=== PATIENT | female | born 1995 | race Caucasian/White ===

== ENCOUNTER 2020-02-08 11:20 | Inpatient (IN) | payer OTHER ==
[2020-02-08 15:04] LABS: Hematocrit 32.5 % (30.3-42.9); Hemoglobin 11.1 gm/dl (10.1-14.3); Mean Corpuscular HGB Conc 34 % (30-34); Mean Corpuscular Volume 84 fl (79-97); Platelet Count 248 K/mm3 (140-440); Red Blood Count 3.86 M/mm3 (3.65-5.03); Red Cell Distribution Width 13.7 % (13.2-15.2)
[2020-02-08 15:07] LABS: Bilirubin,Urine NEG (Negative); Blood,Urine NEG (Negative); Color,Urine Straw (Yellow); Mucus,Urine FEW /HPF; Protein,Urine <15 mg/dL mg/dL (Negative); RBC,Urine < 1.0 /HPF (0.0-6.0); Urobilinogen,Urine < 2.0 mg/dL (<2.0)
[2020-02-08] MEDS ORDERED: ACETAMINOPHEN 325 MG TAB PO ONE (15:24)
[2020-02-08] MEDS ORDERED: DINOPROSTONE 10 MG VAG SUPP VG PRN (15:25)
[2020-02-08 15:26] LABS: Uric Acid 3.8 mg/dL (3.5-7.6)
[2020-02-08 15:37] LABS: Alanine Aminotransferase 15 units/L (7-56)
[2020-02-08] MEDS ORDERED: TERBUTALINE 1 MG/1 ML INJ SUB-Q PRN (15:54)
[2020-02-08] MEDS ORDERED: fentaNYL 100 MCG/2 ML INJ IV PRN (15:54)
[2020-02-08] MEDS ORDERED: ePHEDrine SULFATE 50 MG/1 ML INJ IV PRN (15:54)
[2020-02-08] MEDS ORDERED: TERBUTALINE 1 MG/1 ML INJ IVP PRN (15:54)
[2020-02-08] MEDS ORDERED: LIDOCAINE (2%) 20 MG/1 ML VIAL 20 ML MDV INFILTRATI ONE (15:54)
[2020-02-08] MEDS ORDERED: MINERAL OIL 30 ML ORAL LIQD PO PRN (15:54)
[2020-02-08 18:48] LABS: Hematocrit 31.9 % (30.3-42.9); Hemoglobin 10.8 gm/dl (10.1-14.3)
[2020-02-09] MEDS: LACTATED RINGERS 1,000 ML IV SCH ×3 (00:47→17:07)
[2020-02-09] MEDS: BUTORPHANOL 2 MG/1 ML INJ IV PRN ×4 (02:17→21:14)
[2020-02-09] MEDS ORDERED: miSOPROStol 25 MCG TAB VG ONE (07:30)
--- NOTE | 2020-02-09 09:08 | History and Physical Report ---
History of Present Illness Date of examination: 02/09/20 Date of admission: 02/08/20 12:26 Chief complaint: Here for induction History of present illness: Pt is a 24 yo at 37w5d who presents for induction of labor secondary to gestational diabetes and gestational hypertension. She reports positive movement and denies LOF or vaginal bleeding. She has received care with [facility] and [facility]. Her course has been complicated by lifestyle-controlled GDM, gHTN, recurrent dysuria with Augmentin suppressive therapy, GERD, flu, ear infection, and bronchitis. She is GBS negative. Past History Past Medical History: no pertinent history Past Surgical History: no surgical history Family/Genetic History: diabetes (mother) Social history: other (Speaks Faroese primarily) - Obstetrical History Expected Date of Delivery: 02/25/20 Actual Gestation: 37 Week(s) 5 Day(s) : 1 Para: 0 Medications and Allergies Allergies Allergy/AdvReac Type Severity Reaction Status Date / Time No Known Allergies Allergy Unverified 02/08/20 12:52 Home Medications Medication Instructions Recorded Confirmed Last Taken Type Vitamin 1 tab PO DAILY 02/08/20 02/08/20 02/07/20 11:00 History 1 Active Meds: Active Medications Butorphanol Tartrate (Stadol) 1 mg IV Q2H PRN PRN Reason: Pain, Moderate(4-6) LABOR PAIN Last Admin: 02/09/20 02:17 Dose: 1 mg Documented by: Dinoprostone (Cervidil) 10 mg VG Q6H PRN PRN Reason: Cervical Ripening Last Admin: 02/08/20 17:00 Dose: 10 mg Documented by: Ephedrine Sulfate (Ephedrine Sulfate) 10 mg IV Q2M PRN PRN Reason: Hypotension Fentanyl (Sublimaze) 100 mcg IV Q2H PRN PRN Reason: Pain,Severe (7-10) LABOR PAIN Oxytocin/Sodium Chloride (Pitocin/Ns 20 Unit/1000ml Drip) 20 units in 1,000 mls @ 125 mls/hr IV DIRECT SEBASTIAN Lactated Ringer's (Lactated Ringers) 1,000 mls @ 125 mls/hr IV DIRECT SEBASTIAN Last Admin: 02/09/20 08:42 Dose: 125 mls/hr Documented by: Mineral Oil (Mineral Oil) 30 ml PO QHS PRN PRN Reason: Constipation Terbutaline Sulfate (Brethine) 0.25 mg SUB-Q ONCE PRN PRN Reason: Hyperstimulation/Hypertonicity Terbutaline Sulfate (Brethine) 0.25 mg IVP ONCE PRN PRN Reason: Hyperstimulation/Hypertonicity Review of Systems All systems: negative Eyes: no blurred vision Gastrointestinal: no abdominal pain Genitourinary: contractions, no vaginal bleeding, no vaginal discharge, no leakage of fluid Neurological: headaches (frontal, since Cervidil placement) - Vital Signs Vital signs: Vital Signs Pulse BP 81 153/93 02/08/20 12:24 02/08/20 12:24 Temp Pulse Resp BP Pulse Ox 98.4 F 95 H 20 136/86 99 02/09/20 07:43 02/09/20 09:02 02/09/20 07:43 02/09/20 08:33 02/09/20 09:02 - Physical Exam Lungs: Positive: Normal air movement Abdomen: Positive: soft. Negative: distention Uterus: Positive: enlarged (gravid) Extremities: Positive: normal - Obstetrical FHR: category 1 Uterine Contraction Monitor Mode: External Cervical Dilatation: 1 (per RN) Cervical Effacement Percentage: 70 station: -2 Uterine Contraction Frequency (min): 4 Uterine Contraction Pattern: Regular Uterine Tone Measurement Phase: Contraction Uterine Contraction Intensity: Mild Results Result Diagrams: 02/08/20 18:14 02/08/20 13:00 Abnormal lab results 02/08/20 02/08/20 02/09/20 Range/Units 13:00 13:00 07:00 WBC 12.8 H (4.5-11.0) K/mm3 Creatinine 0.4 L (0.7-1.2) mg/dL POC Glucose 176 H (70-105) Lactate Dehydrogenase 453 H (91-180) units/L 02/09/20 Range/Units 08:10 WBC (4.5-11.0) K/mm3 Creatinine (0.7-1.2) mg/dL POC Glucose 137 H (70-105) Lactate Dehydrogenase (91-180) units/L All other labs normal. Assessment and Plan A: 24 yo at 37w5d EGA Gestational hypertension Gestational diabetes, lifestyle-controlled GBS negative Membranes intact Cervix unfavorable for labor Recurrent dysuria GERD Flu/otitis/bronchitis this P: Admit for IOL. S/p Cervidil, initiate Cytotec BG per protocol Continue to monitor closely Mag sulfate if headache unrelieved by Tylenol Anticipate
[2020-02-09] MEDS ORDERED: ACETAMINOPHEN 325 MG TAB PO ONE ×2 (09:33→09:36)
[2020-02-09] MEDS: miSOPROStol 25 MCG TAB VG SCH ×2 (14:04→18:15)
--- NOTE | 2020-02-09 20:05 | Progress Note ---
Assessment and Plan A: 24 yo at 37w5d EGA Gestational hypertension Gestational diabetes, lifestyle-controlled GBS negative Membranes intact Cervix unfavorable for labor Recurrent dysuria GERD Flu/otitis/bronchitis this P: Discussed r/b/a of Cook Catheter placement including infection and rupture of membranes. Pt elects for placement. Cook Catheter placed in sterile fashion, each balloon inflated to 60ml, pt tolerated with discomfort. Continue Cytotec administration BG per protocol Continue to monitor closely Anticipate Subjective - Subjective Date of service: 02/09/20 Interval history: Pt has received Cervidil and Cytotec for IOL with minimal cervical change. Pt is a 24 yo at 37w5d who presents for induction of labor secondary to gestational diabetes and gestational hypertension. She reports positive movement and denies LOF or vaginal bleeding. She has received care with [facility] and [facility]. Her course has been complicated by lifestyle-controlled GDM, gHTN, recurrent dysuria with Augmentin suppressive therapy, GERD, flu, ear infection, and bronchitis. She is GBS negative. Patient reports: contractions, no new complaints, no loss of fluid, no vaginal bleeding Objective - Vital Signs Vital Signs: Vital Signs - 12hr 02/09/20 02/09/20 02/09/20 08:07 08:12 08:17 Temperature Pulse Rate 103 H 99 H 116 H Respiratory Rate Blood Pressure Blood Pressure [Left] O2 Sat by Pulse 99 99 99 Oximetry 02/09/20 02/09/20 02/09/20 08:22 08:27 08:32 Temperature Pulse Rate 108 H 108 H 105 H Respiratory Rate Blood Pressure Blood Pressure [Left] O2 Sat by Pulse 99 99 99 Oximetry 02/09/20 02/09/20 02/09/20 08:33 08:37 08:42 Temperature Pulse Rate 111 H 103 H 102 H Respiratory Rate Blood Pressure 136/86 Blood Pressure [Left] O2 Sat by Pulse 99 99 Oximetry 02/09/20 02/09/20 02/09/20 08:47 08:52 08:57 Temperature Pulse Rate 102 H 112 H 102 H Respiratory Rate Blood Pressure Blood Pressure [Left] O2 Sat by Pulse 99 99 99 Oximetry 02/09/20 02/09/20 02/09/20 09:02 09:04 09:07 Temperature Pulse Rate 95 H 98 H 101 H Respiratory Rate Blood Pressure 118/76 Blood Pressure [Left] O2 Sat by Pulse 99 99 Oximetry 02/09/20 02/09/20 02/09/20 09:12 09:17 09:22 Temperature Pulse Rate 98 H 102 H 105 H Respiratory Rate Blood Pressure Blood Pressure [Left] O2 Sat by Pulse 99 99 99 Oximetry 02/09/20 02/09/20 02/09/20 09:27 09:32 09:35 Temperature Pulse Rate 102 H 95 H 96 H Respiratory Rate Blood Pressure 125/80 Blood Pressure [Left] O2 Sat by Pulse 99 98 Oximetry 02/09/20 02/09/20 02/09/20 09:37 09:42 09:47 Temperature Pulse Rate 105 H 99 H 89 Respiratory Rate Blood Pressure Blood Pressure [Left] O2 Sat by Pulse 100 99 99 Oximetry 02/09/20 02/09/20 02/09/20 09:52 09:57 10:02 Temperature Pulse Rate 94 H 91 H 85 Respiratory Rate Blood Pressure Blood Pressure [Left] O2 Sat by Pulse 99 99 98 Oximetry 02/09/20 02/09/20 02/09/20 10:05 10:07 10:12 Temperature Pulse Rate 79 76 94 H Respiratory Rate Blood Pressure 118/72 Blood Pressure [Left] O2 Sat by Pulse 98 99 Oximetry 02/09/20 02/09/20 02/09/20 10:17 10:22 10:27 Temperature Pulse Rate 83 89 94 H Respiratory Rate Blood Pressure Blood Pressure [Left] O2 Sat by Pulse 99 99 99 Oximetry 02/09/20 02/09/20 02/09/20 10:32 10:34 10:37 Temperature Pulse Rate 83 84 90 Respiratory Rate Blood Pressure 139/85 Blood Pressure [Left] O2 Sat by Pulse 98 94 98 Oximetry 02/09/20 02/09/20 02/09/20 10:41 10:42 10:47 Temperature Pulse Rate 79 100 H Respiratory 20 Rate Blood Pressure Blood Pressure [Left] O2 Sat by Pulse 99 99 Oximetry 02/09/20 02/09/20 02/09/20 10:52 10:57 11:02 Temperature Pulse Rate 83 93 H 79 Respiratory Rate Blood Pressure Blood Pressure [Left] O2 Sat by Pulse 99 99 100 Oximetry 02/09/20 02/09/20 02/09/20 11:04 11:07 11:12 Temperature Pulse Rate 78 78 80 Respiratory Rate Blood Pressure 118/74 Blood Pressure [Left] O2 Sat by Pulse 100 99 Oximetry 02/09/20 02/09/20 02/09/20 11:17 11:22 11:27 Temperature Pulse Rate 81 83 80 Respiratory Rate Blood Pressure Blood Pressure [Left] O2 Sat by Pulse 99 99 99 Oximetry 02/09/20 02/09/20 02/09/20 11:32 11:35 11:37 Temperature Pulse Rate 78 83 87 Respiratory Rate Blood Pressure 119/90 Blood Pressure [Left] O2 Sat by Pulse 99 99 Oximetry 02/09/20 02/09/20 02/09/20 11:42 11:47 11:52 Temperature Pulse Rate 78 72 76 Respiratory Rate Blood Pressure Blood Pressure [Left] O2 Sat by Pulse 99 99 99 Oximetry 02/09/20 02/09/20 02/09/20 11:57 12:02 12:04 Temperature Pulse Rate 81 82 88 Respiratory Rate Blood Pressure 128/84 Blood Pressure [Left] O2 Sat by Pulse 98 97 Oximetry 02/09/20 02/09/20 02/09/20 12:07 12:12 12:17 Temperature Pulse Rate 81 79 81 Respiratory Rate Blood Pressure Blood Pressure [Left] O2 Sat by Pulse 98 97 97 Oximetry 02/09/20 02/09/20 02/09/20 12:22 12:27 12:32 Temperature Pulse Rate 78 76 81 Respiratory Rate Blood Pressure Blood Pressure [Left] O2 Sat by Pulse 96 97 97 Oximetry 02/09/20 02/09/20 02/09/20 12:33 12:40 12:45 Temperature Pulse Rate 78 92 H 95 H Respiratory Rate Blood Pressure 123/83 Blood Pressure [Left] O2 Sat by Pulse 99 100 Oximetry 02/09/20 02/09/20 02/09/20 12:50 12:51 12:55 Temperature Pulse Rate 73 72 Respiratory 18 Rate Blood Pressure Blood Pressure [Left] O2 Sat by Pulse 99 99 Oximetry 02/09/20 02/09/20 02/09/20 13:00 13:05 13:10 Temperature Pulse Rate 79 77 78 Respiratory Rate Blood Pressure Blood Pressure [Left] O2 Sat by Pulse 98 98 99 Oximetry 02/09/20 02/09/20 02/09/20 13:15 13:20 13:25 Temperature Pulse Rate 73 74 78 Respiratory Rate Blood Pressure Blood Pressure [Left] O2 Sat by Pulse 99 99 100 Oximetry 02/09/20 02/09/20 02/09/20 13:30 13:35 13:40 Temperature Pulse Rate 77 80 72 Respiratory Rate Blood Pressure Blood Pressure [Left] O2 Sat by Pulse 100 100 100 Oximetry 02/09/20 02/09/20 02/09/20 13:41 13:45 13:50 Temperature Pulse Rate 74 85 105 H Respiratory Rate Blood Pressure 131/81 Blood Pressure [Left] O2 Sat by Pulse 100 100 Oximetry 02/09/20 02/09/20 02/09/20 13:55 14:00 14:05 Temperature Pulse Rate 78 77 77 Respiratory Rate Blood Pressure Blood Pressure [Left] O2 Sat by Pulse 100 100 100 Oximetry 02/09/20 02/09/20 02/09/20 14:10 14:15 14:20 Temperature Pulse Rate 87 86 89 Respiratory Rate Blood Pressure Blood Pressure [Left] O2 Sat by Pulse 99 99 99 Oximetry 02/09/20 02/09/20 02/09/20 14:25 14:30 14:35 Temperature Pulse Rate 97 H 84 80 Respiratory Rate Blood Pressure Blood Pressure [Left] O2 Sat by Pulse 99 99 99 Oximetry 02/09/20 02/09/20 02/09/20 14:40 14:43 14:45 Temperature Pulse Rate 92 H 93 H 91 H Respiratory Rate Blood Pressure 120/69 Blood Pressure [Left] O2 Sat by Pulse 99 99 Oximetry 02/09/20 02/09/20 02/09/20 14:50 14:55 15:00 Temperature Pulse Rate 90 87 90 Respiratory Rate Blood Pressure Blood Pressure [Left] O2 Sat by Pulse 99 98 99 Oximetry 02/09/20 02/09/20 02/09/20 15:05 15:10 15:15 Temperature Pulse Rate 96 H 87 93 H Respiratory Rate Blood Pressure Blood Pressure [Left] O2 Sat by Pulse 99 99 99 Oximetry 02/09/20 02/09/20 02/09/20 15:20 15:25 15:30 Temperature Pulse Rate 95 H 95 H 91 H Respiratory Rate Blood Pressure Blood Pressure [Left] O2 Sat by Pulse 99 99 99 Oximetry 02/09/20 02/09/20 02/09/20 15:35 15:40 15:42 Temperature Pulse Rate 81 88 86 Respiratory Rate Blood Pressure 130/77 Blood Pressure [Left] O2 Sat by Pulse 99 99 Oximetry 02/09/20 02/09/20 02/09/20 15:45 15:50 15:55 Temperature Pulse Rate 87 86 77 Respiratory Rate Blood Pressure Blood Pressure [Left] O2 Sat by Pulse 99 99 99 Oximetry 02/09/20 02/09/20 02/09/20 16:00 16:05 16:10 Temperature Pulse Rate 86 82 101 H Respiratory Rate Blood Pressure Blood Pressure [Left] O2 Sat by Pulse 99 100 99 Oximetry 02/09/20 02/09/20 02/09/20 16:15 16:20 16:25 Temperature Pulse Rate 82 88 90 Respiratory Rate Blood Pressure Blood Pressure [Left] O2 Sat by Pulse 98 99 99 Oximetry 02/09/20 02/09/20 02/09/20 16:30 16:35 16:40 Temperature Pulse Rate 87 83 89 Respiratory Rate Blood Pressure Blood Pressure [Left] O2 Sat by Pulse 99 98 99 Oximetry 02/09/20 02/09/20 02/09/20 16:42 16:45 16:50 Temperature Pulse Rate 76 85 90 Respiratory Rate Blood Pressure 142/83 Blood Pressure [Left] O2 Sat by Pulse 99 98 Oximetry 02/09/20 02/09/20 02/09/20 16:55 17:00 17:05 Temperature Pulse Rate 88 88 93 H Respiratory Rate Blood Pressure Blood Pressure [Left] O2 Sat by Pulse 99 99 98 Oximetry 02/09/20 02/09/20 02/09/20 17:10 17:13 17:15 Temperature 98.1 F Pulse Rate 83 78 98 H Respiratory 18 Rate Blood Pressure Blood Pressure 142/83 [Left] O2 Sat by Pulse 99 99 99 Oximetry 02/09/20 02/09/20 02/09/20 17:20 17:25 17:30 Temperature Pulse Rate 80 94 H 86 Respiratory Rate Blood Pressure Blood Pressure [Left] O2 Sat by Pulse 99 100 99 Oximetry 02/09/20 02/09/20 02/09/20 17:35 17:40 17:41 Temperature Pulse Rate 82 95 H 91 H Respiratory Rate Blood Pressure 142/100 Blood Pressure [Left] O2 Sat by Pulse 99 99 Oximetry 02/09/20 02/09/20 02/09/20 17:45 17:50 17:55 Temperature Pulse Rate 81 86 89 Respiratory Rate Blood Pressure 133/75 Blood Pressure [Left] O2 Sat by Pulse 98 98 99 Oximetry 02/09/20 02/09/20 02/09/20 18:00 18:05 18:10 Temperature Pulse Rate 84 83 81 Respiratory Rate Blood Pressure Blood Pressure [Left] O2 Sat by Pulse 98 99 99 Oximetry 02/09/20 02/09/20 02/09/20 18:15 18:20 18:25 Temperature Pulse Rate 90 85 84 Respiratory Rate Blood Pressure Blood Pressure [Left] O2 Sat by Pulse 99 98 99 Oximetry 02/09/20 02/09/20 02/09/20 18:30 18:35 18:40 Temperature Pulse Rate 82 82 87 Respiratory Rate Blood Pressure Blood Pressure [Left] O2 Sat by Pulse 98 99 99 Oximetry 02/09/20 02/09/20 02/09/20 18:42 18:45 18:50 Temperature Pulse Rate 79 92 H 84 Respiratory Rate Blood Pressure 135/79 Blood Pressure [Left] O2 Sat by Pulse 99 99 Oximetry 02/09/20 02/09/20 02/09/20 18:55 19:00 19:05 Temperature Pulse Rate 83 82 80 Respiratory Rate Blood Pressure Blood Pressure [Left] O2 Sat by Pulse 98 99 99 Oximetry 02/09/20 02/09/20 02/09/20 19:10 19:11 19:15 Temperature Pulse Rate 80 80 Respiratory 20 Rate Blood Pressure Blood Pressure [Left] O2 Sat by Pulse 99 99 Oximetry 02/09/20 02/09/20 02/09/20 19:20 19:25 19:30 Temperature Pulse Rate 80 85 81 Respiratory Rate Blood Pressure Blood Pressure [Left] O2 Sat by Pulse 97 98 98 Oximetry 02/09/20 02/09/20 02/09/20 19:35 19:40 19:41 Temperature 98.4 F Pulse Rate 77 69 73 Respiratory 18 Rate Blood Pressure 134/84 Blood Pressure 134/84 [Left] O2 Sat by Pulse 98 98 98 Oximetry 02/09/20 02/09/20 02/09/20 19:45 19:50 19:55 Temperature Pulse Rate 75 78 86 Respiratory Rate Blood Pressure Blood Pressure [Left] O2 Sat by Pulse 98 100 100 Oximetry 02/09/20 20:00 Temperature Pulse Rate 79 Respiratory Rate Blood Pressure Blood Pressure [Left] O2 Sat by Pulse 99 Oximetry - Exam Lungs: Normal air movement FHR: category 1 Uterine Contraction Monitor Mode: External Cervical Dilatation: 1.5 Cervical Effacement Percentage: 70 station: -2 Uterine Contraction Pattern: Irregular - Labs Labs: Abnormal Labs 02/08/20 02/08/20 02/09/20 13:00 13:00 07:00 WBC 12.8 H Creatinine 0.4 L POC Glucose 176 H Lactate Dehydrogenase 453 H 02/09/20 02/09/20 08:10 16:05 WBC Creatinine POC Glucose 137 H 129 H Lactate Dehydrogenase Laboratory Results - last 24 hr 02/08/20 02/09/20 02/09/20 21:26 07:00 08:10 POC Glucose 81 176 H 137 H 02/09/20 16:05 POC Glucose 129 H
[2020-02-09] MEDS ORDERED: PROMETHAZINE 25 MG TAB PO PRN (21:09)
[2020-02-09] MEDS ORDERED: DEXMEDETOMIDINE 200 MCG/2 ML VIAL IV ONE (22:40)
[2020-02-09] MEDS ORDERED: fentaNYL-BUPIV 2 MCG/ML-0.125% 200 MCG/100 ML BAG EPIDURAL ONE (22:40)
--- NOTE | 2020-02-09 22:57 | Anesthesia Consultation ---
Anesthesia Consult and Med Hx Date of service: 02/09/20 - Airway Anesthetic Teeth Evaluation: Good ROM Head & Neck: Adequate Mental/Hyoid Distance: Adequate Mallampati Class: Class II Intubation Access Assessment: Probably Good - Pulmonary Exam CTA: Yes - Cardiac Exam Cardiac Exam: RRR - Pre-Operative Health Status ASA Pre-Surgery Classification: ASA2 Proposed Anesthetic Plan: Epidural - Cardiovascular System Hx Hypertension: Yes - Other Systems Hx Alcohol Use: No
[2020-02-09] MEDS ORDERED: NALOXONE 2 MG/2 ML INJ IV PRN (22:58)
[2020-02-09] MEDS ORDERED: ePHEDrine SULFATE 50 MG/1 ML INJ IV PRN (22:58)
--- NOTE | 2020-02-09 22:58 | Progress Note ---
Labor Epidural - Labor Epidural Start Time: 22:45 Stop Time: 22:55 Performed by:: CINDY CAMERON Procedure: Patient is requesting epidural for labor pain. H&P, and labs reviewed. Procedure explained, questions answered, consent obtained. Patient in L lateral position with blood pressure cuff and pulse ox on and working. Timeout performed immediately before start of procedure. Sterile betadine prep/drape. 3 mL 1% lidocaine skin wheal at L[3]-L[4]. 18-gauge Touhy epidural needle advanced to [id number] with saline at [7] cm. Epidural dexmedetomidine [30] mcg administered. Epidural catheter advanced to [12] cm, negative aspiration for blood and csf, negative test dose 3 ml 1.5% lidocaine with epinephrine. Sterile steri-strips and tegaderm applied, followed by tape reinforcement. Patient tolerated procedure well.
[2020-02-09] MEDS ORDERED: fentaNYL-BUPIV 2 MCG/ML-0.125% 200 MCG/100 ML BAG EPIDURAL SCH (23:00)
[2020-02-10] MEDS ORDERED: BUPIVACAINE/PF (0.25%) 2.5 MG/ML 10 ML VIAL INFILTRATI ONE ×2 (05:13→09:57)
[2020-02-10] MEDS ORDERED: OXYTOCIN DRIP 30,000 MILLIUNITS/500 ML BAG IV ONE (05:30)
--- NOTE | 2020-02-10 05:32 | Progress Note ---
Assessment and Plan A: 24 yo at 37w6d EGA Gestational hypertension Gestational diabetes, lifestyle-controlled Membranes ruptured GBS negative P: Cook catheter expelled with gentle traction, SROM clear fluid Initiate pitocin titration BG per protocol Continue to monitor closely Anticipate Subjective - Subjective Date of service: 02/10/20 Principal diagnosis: IOL Interval history: HD3 of IOL for GDM and gHTN. Pt has received Cervidil, Cytotec, and Cook Catheter. She is in significant back pain. Pt is a 24 yo at 37w5d who presents for induction of labor secondary to gestational diabetes and gestational hypertension. She reports positive movement and denies LOF or vaginal bleeding. She has received care with [facility] and [facility]. Her course has been complicated by lifestyle-controlled GDM, gHTN, recurrent dysuria with Augmentin suppressive therapy, GERD, flu, ear infection, and bronchitis. She is GBS negative. Patient reports: new complaints (back pain), contractions, no loss of fluid, no vaginal bleeding Objective - Vital Signs Vital Signs: Vital Signs - 12hr 02/09/20 02/09/20 02/09/20 17:35 17:40 17:41 Temperature Pulse Rate 82 95 H 91 H Respiratory Rate Blood Pressure 142/100 Blood Pressure [Left] O2 Sat by Pulse 99 99 Oximetry 02/09/20 02/09/20 02/09/20 17:45 17:50 17:55 Temperature Pulse Rate 81 86 89 Respiratory Rate Blood Pressure 133/75 Blood Pressure [Left] O2 Sat by Pulse 98 98 99 Oximetry 02/09/20 02/09/20 02/09/20 18:00 18:05 18:10 Temperature Pulse Rate 84 83 81 Respiratory Rate Blood Pressure Blood Pressure [Left] O2 Sat by Pulse 98 99 99 Oximetry 02/09/20 02/09/20 02/09/20 18:15 18:20 18:25 Temperature Pulse Rate 90 85 84 Respiratory Rate Blood Pressure Blood Pressure [Left] O2 Sat by Pulse 99 98 99 Oximetry 02/09/20 02/09/20 02/09/20 18:30 18:35 18:40 Temperature Pulse Rate 82 82 87 Respiratory Rate Blood Pressure Blood Pressure [Left] O2 Sat by Pulse 98 99 99 Oximetry 02/09/20 02/09/20 02/09/20 18:42 18:45 18:50 Temperature Pulse Rate 79 92 H 84 Respiratory Rate Blood Pressure 135/79 Blood Pressure [Left] O2 Sat by Pulse 99 99 Oximetry 02/09/20 02/09/20 02/09/20 18:55 19:00 19:05 Temperature Pulse Rate 83 82 80 Respiratory Rate Blood Pressure Blood Pressure [Left] O2 Sat by Pulse 98 99 99 Oximetry 02/09/20 02/09/20 02/09/20 19:10 19:11 19:15 Temperature Pulse Rate 80 80 Respiratory 20 Rate Blood Pressure Blood Pressure [Left] O2 Sat by Pulse 99 99 Oximetry 02/09/20 02/09/20 02/09/20 19:20 19:25 19:30 Temperature Pulse Rate 80 85 81 Respiratory Rate Blood Pressure Blood Pressure [Left] O2 Sat by Pulse 97 98 98 Oximetry 02/09/20 02/09/20 02/09/20 19:35 19:40 19:41 Temperature 98.4 F Pulse Rate 77 69 73 Respiratory 18 Rate Blood Pressure 134/84 Blood Pressure 134/84 [Left] O2 Sat by Pulse 98 98 98 Oximetry 02/09/20 02/09/20 02/09/20 19:45 19:50 19:55 Temperature Pulse Rate 75 78 86 Respiratory Rate Blood Pressure Blood Pressure [Left] O2 Sat by Pulse 98 100 100 Oximetry 02/09/20 02/09/20 02/09/20 20:00 20:05 20:10 Temperature Pulse Rate 79 80 85 Respiratory Rate Blood Pressure Blood Pressure [Left] O2 Sat by Pulse 99 99 97 Oximetry 02/09/20 02/09/20 02/09/20 20:15 20:20 20:25 Temperature Pulse Rate 73 103 H 79 Respiratory Rate Blood Pressure Blood Pressure [Left] O2 Sat by Pulse 98 99 100 Oximetry 02/09/20 02/09/20 02/09/20 20:27 20:30 20:33 Temperature Pulse Rate 74 77 76 Respiratory 18 Rate Blood Pressure 142/88 Blood Pressure 142/88 [Left] O2 Sat by Pulse 99 98 Oximetry 02/09/20 02/09/20 02/09/20 20:35 20:40 20:45 Temperature Pulse Rate 73 75 77 Respiratory Rate Blood Pressure Blood Pressure [Left] O2 Sat by Pulse 97 98 97 Oximetry 02/09/20 02/09/20 02/09/20 20:47 20:50 20:55 Temperature Pulse Rate 75 74 93 H Respiratory Rate Blood Pressure 134/79 Blood Pressure [Left] O2 Sat by Pulse 99 99 Oximetry 02/09/20 02/09/20 02/09/20 21:00 21:05 21:10 Temperature Pulse Rate 74 74 76 Respiratory Rate Blood Pressure 142/87 Blood Pressure [Left] O2 Sat by Pulse 99 100 99 Oximetry 02/09/20 02/09/20 02/09/20 21:15 21:20 21:25 Temperature Pulse Rate 82 75 80 Respiratory Rate Blood Pressure Blood Pressure [Left] O2 Sat by Pulse 99 97 97 Oximetry 02/09/20 02/09/20 02/09/20 21:27 21:30 21:35 Temperature Pulse Rate 76 89 81 Respiratory Rate Blood Pressure 123/68 Blood Pressure [Left] O2 Sat by Pulse 96 97 Oximetry 02/09/20 02/09/20 02/09/20 21:40 21:45 21:46 Temperature Pulse Rate 86 82 89 Respiratory Rate Blood Pressure 135/84 Blood Pressure [Left] O2 Sat by Pulse 98 97 93 Oximetry 02/09/20 02/09/20 02/09/20 21:50 21:55 22:00 Temperature Pulse Rate 92 H 100 H 91 H Respiratory Rate Blood Pressure Blood Pressure [Left] O2 Sat by Pulse 97 97 97 Oximetry 02/09/20 02/09/20 02/09/20 22:04 22:05 22:06 Temperature Pulse Rate 83 103 H 88 Respiratory 18 Rate Blood Pressure 135/95 Blood Pressure 135/84 [Left] O2 Sat by Pulse 98 100 Oximetry 02/09/20 02/09/20 02/09/20 22:10 22:15 22:20 Temperature Pulse Rate 86 103 H 88 Respiratory Rate Blood Pressure Blood Pressure [Left] O2 Sat by Pulse 99 97 100 Oximetry 02/09/20 02/09/20 02/09/20 22:25 22:27 22:30 Temperature Pulse Rate 83 85 85 Respiratory Rate Blood Pressure 151/73 Blood Pressure [Left] O2 Sat by Pulse 98 94 99 Oximetry 02/09/20 02/09/20 02/09/20 22:35 22:40 22:45 Temperature Pulse Rate 85 92 H 91 H Respiratory Rate Blood Pressure Blood Pressure [Left] O2 Sat by Pulse 99 98 99 Oximetry 02/09/20 02/09/20 02/09/20 22:47 22:49 22:50 Temperature Pulse Rate 88 81 86 Respiratory Rate Blood Pressure 168/98 144/90 Blood Pressure [Left] O2 Sat by Pulse 99 Oximetry 02/09/20 02/09/20 02/09/20 22:51 22:53 22:55 Temperature Pulse Rate 82 91 H 92 H Respiratory Rate Blood Pressure 142/82 162/91 149/80 Blood Pressure [Left] O2 Sat by Pulse 98 Oximetry 02/09/20 02/09/20 02/09/20 22:59 23:00 23:01 Temperature Pulse Rate 88 82 81 Respiratory Rate Blood Pressure 136/73 128/77 Blood Pressure [Left] O2 Sat by Pulse 98 Oximetry 02/09/20 02/09/20 02/09/20 23:02 23:05 23:07 Temperature Pulse Rate 92 H 92 H 83 Respiratory Rate Blood Pressure 138/84 144/87 146/82 Blood Pressure [Left] O2 Sat by Pulse 98 Oximetry 02/09/20 02/09/20 02/09/20 23:08 23:10 23:11 Temperature Pulse Rate 99 H 102 H 89 Respiratory Rate Blood Pressure 152/93 158/96 Blood Pressure [Left] O2 Sat by Pulse 99 Oximetry 02/09/20 02/09/20 02/09/20 23:13 23:14 23:15 Temperature Pulse Rate 99 H 82 82 Respiratory 18 Rate Blood Pressure 148/86 144/88 Blood Pressure 144/88 [Left] O2 Sat by Pulse 99 Oximetry 02/09/20 02/09/20 02/09/20 23:16 23:17 23:19 Temperature Pulse Rate 91 H 104 H 86 Respiratory 18 Rate Blood Pressure 178/113 163/87 Blood Pressure [Left] O2 Sat by Pulse 99 Oximetry 02/09/20 02/09/20 02/09/20 23:20 23:21 23:23 Temperature Pulse Rate 77 76 82 Respiratory Rate Blood Pressure 163/87 165/89 Blood Pressure [Left] O2 Sat by Pulse 96 Oximetry 02/09/20 02/09/20 02/09/20 23:25 23:26 23:27 Temperature Pulse Rate 90 81 75 Respiratory Rate Blood Pressure 164/97 138/88 Blood Pressure [Left] O2 Sat by Pulse 96 Oximetry 02/09/20 02/09/20 02/09/20 23:31 23:36 23:41 Temperature Pulse Rate 78 77 83 Respiratory Rate Blood Pressure Blood Pressure [Left] O2 Sat by Pulse 97 97 97 Oximetry 02/09/20 02/09/20 02/09/20 23:44 23:46 23:51 Temperature Pulse Rate 74 78 79 Respiratory Rate Blood Pressure 144/83 Blood Pressure [Left] O2 Sat by Pulse 97 99 Oximetry 02/09/20 02/09/20 02/10/20 23:56 23:58 00:01 Temperature Pulse Rate 71 73 82 Respiratory 18 Rate Blood Pressure 139/91 Blood Pressure 139/91 [Left] O2 Sat by Pulse 97 99 98 Oximetry 02/10/20 02/10/20 02/10/20 00:06 00:11 00:13 Temperature Pulse Rate 76 74 75 Respiratory Rate Blood Pressure 144/97 Blood Pressure [Left] O2 Sat by Pulse 98 98 Oximetry 02/10/20 02/10/20 02/10/20 00:16 00:21 00:26 Temperature Pulse Rate 74 82 84 Respiratory Rate Blood Pressure Blood Pressure [Left] O2 Sat by Pulse 96 98 99 Oximetry 02/10/20 02/10/20 02/10/20 00:30 00:31 00:36 Temperature Pulse Rate 85 78 78 Respiratory 18 Rate Blood Pressure 113/72 Blood Pressure 113/72 [Left] O2 Sat by Pulse 99 99 98 Oximetry 02/10/20 02/10/20 02/10/20 00:41 00:46 00:51 Temperature Pulse Rate 80 76 80 Respiratory Rate Blood Pressure 98/60 Blood Pressure [Left] O2 Sat by Pulse 98 98 98 Oximetry 02/10/20 02/10/20 02/10/20 00:56 00:58 01:01 Temperature Pulse Rate 81 79 80 Respiratory Rate Blood Pressure 105/58 Blood Pressure [Left] O2 Sat by Pulse 98 98 Oximetry 02/10/20 02/10/20 02/10/20 01:06 01:11 01:14 Temperature Pulse Rate 88 85 81 Respiratory Rate Blood Pressure 125/69 Blood Pressure [Left] O2 Sat by Pulse 98 98 Oximetry 02/10/20 02/10/20 02/10/20 01:16 01:21 01:26 Temperature Pulse Rate 80 79 82 Respiratory Rate Blood Pressure Blood Pressure [Left] O2 Sat by Pulse 98 98 98 Oximetry 02/10/20 02/10/20 02/10/20 01:28 01:31 01:36 Temperature Pulse Rate 82 80 86 Respiratory Rate Blood Pressure 105/59 Blood Pressure [Left] O2 Sat by Pulse 97 97 Oximetry 02/10/20 02/10/20 02/10/20 01:41 01:44 01:46 Temperature Pulse Rate 77 76 79 Respiratory Rate Blood Pressure 109/63 Blood Pressure [Left] O2 Sat by Pulse 97 97 Oximetry 02/10/20 02/10/20 02/10/20 01:51 01:56 01:58 Temperature Pulse Rate 83 91 H 79 Respiratory 18 Rate Blood Pressure 104/57 Blood Pressure 105/58 [Left] O2 Sat by Pulse 97 97 98 Oximetry 02/10/20 02/10/20 02/10/20 02:01 02:06 02:11 Temperature Pulse Rate 93 H 101 H 107 H Respiratory Rate Blood Pressure Blood Pressure [Left] O2 Sat by Pulse 98 99 99 Oximetry 02/10/20 02/10/20 02/10/20 02:13 02:16 02:18 Temperature 98.8 F Pulse Rate 86 75 76 Respiratory 18 Rate Blood Pressure 137/87 Blood Pressure 137/87 [Left] O2 Sat by Pulse 98 99 Oximetry 02/10/20 02/10/20 02/10/20 02:21 02:26 02:28 Temperature Pulse Rate 85 79 77 Respiratory Rate Blood Pressure 136/84 Blood Pressure [Left] O2 Sat by Pulse 99 97 Oximetry 02/10/20 02/10/20 02/10/20 02:31 02:36 02:41 Temperature Pulse Rate 81 80 80 Respiratory Rate Blood Pressure Blood Pressure [Left] O2 Sat by Pulse 97 97 96 Oximetry 02/10/20 02/10/20 02/10/20 02:43 02:46 02:51 Temperature Pulse Rate 80 94 H 80 Respiratory Rate Blood Pressure 127/78 Blood Pressure [Left] O2 Sat by Pulse 94 96 96 Oximetry 02/10/20 02/10/20 02/10/20 02:56 02:58 03:01 Temperature Pulse Rate 81 79 76 Respiratory Rate Blood Pressure 130/79 Blood Pressure [Left] O2 Sat by Pulse 96 94 96 Oximetry 02/10/20 02/10/20 02/10/20 03:06 03:11 03:14 Temperature Pulse Rate 79 78 82 Respiratory Rate Blood Pressure 150/91 Blood Pressure [Left] O2 Sat by Pulse 96 97 Oximetry 02/10/20 02/10/20 02/10/20 03:16 03:21 03:26 Temperature Pulse Rate 77 76 88 Respiratory Rate Blood Pressure Blood Pressure [Left] O2 Sat by Pulse 97 97 96 Oximetry 02/10/20 02/10/20 02/10/20 03:28 03:31 03:36 Temperature Pulse Rate 85 95 H 81 Respiratory Rate Blood Pressure 143/90 Blood Pressure [Left] O2 Sat by Pulse 99 100 Oximetry 02/10/20 02/10/20 02/10/20 03:41 03:43 03:46 Temperature Pulse Rate 86 82 116 H Respiratory Rate Blood Pressure 133/86 Blood Pressure [Left] O2 Sat by Pulse 98 99 Oximetry 02/10/20 02/10/20 02/10/20 03:51 03:55 03:56 Temperature Pulse Rate 91 H 72 73 Respiratory 18 Rate Blood Pressure Blood Pressure 108/61 [Left] O2 Sat by Pulse 99 97 99 Oximetry 02/10/20 02/10/20 02/10/20 03:58 04:01 04:06 Temperature Pulse Rate 72 73 76 Respiratory Rate Blood Pressure 108/61 Blood Pressure [Left] O2 Sat by Pulse 94 98 97 Oximetry 02/10/20 02/10/20 02/10/20 04:11 04:14 04:16 Temperature Pulse Rate 80 73 74 Respiratory Rate Blood Pressure 106/66 Blood Pressure [Left] O2 Sat by Pulse 99 98 Oximetry 02/10/20 02/10/20 02/10/20 04:21 04:26 04:31 Temperature Pulse Rate 91 H 85 82 Respiratory Rate Blood Pressure Blood Pressure [Left] O2 Sat by Pulse 97 99 99 Oximetry 02/10/20 02/10/20 02/10/20 04:36 04:41 04:43 Temperature Pulse Rate 108 H 77 97 H Respiratory Rate Blood Pressure 165/102 Blood Pressure [Left] O2 Sat by Pulse 99 100 Oximetry 02/10/20 02/10/20 02/10/20 04:46 04:51 04:56 Temperature Pulse Rate 85 76 92 H Respiratory Rate Blood Pressure Blood Pressure [Left] O2 Sat by Pulse 99 99 99 Oximetry 02/10/20 02/10/20 02/10/20 04:59 05:01 05:06 Temperature Pulse Rate 74 78 93 H Respiratory Rate Blood Pressure 124/78 Blood Pressure [Left] O2 Sat by Pulse 94 99 98 Oximetry 02/10/20 02/10/20 02/10/20 05:11 05:13 05:16 Temperature Pulse Rate 66 54 L 71 Respiratory 20 Rate Blood Pressure 121/76 Blood Pressure 121/76 [Left] O2 Sat by Pulse 97 97 98 Oximetry 02/10/20 02/10/20 02/10/20 05:21 05:26 05:27 Temperature Pulse Rate 71 68 62 Respiratory Rate Blood Pressure Blood Pressure [Left] O2 Sat by Pulse 96 95 94 Oximetry 02/10/20 05:29 Temperature Pulse Rate 68 Respiratory Rate Blood Pressure 159/80 Blood Pressure [Left] O2 Sat by Pulse Oximetry - Exam Lungs: Normal air movement Abdomen: Present: soft FHR: category 1 Uterine Contraction Monitor Mode: External Cervical Dilatation: 6 (Cook catheter expelled) Cervical Effacement Percentage: 80 station: -2 Uterine Contraction Frequency (min): 3 Uterine Contraction Duration: 50 sec Uterine Contraction Pattern: Regular Uterine Tone Measurement Phase: Contraction Uterine Contraction Intensity: Moderate - Labs Labs: Abnormal Labs 02/08/20 02/08/20 02/09/20 13:00 13:00 07:00 WBC 12.8 H Creatinine 0.4 L POC Glucose 176 H Lactate Dehydrogenase 453 H 02/09/20 02/09/20 08:10 16:05 WBC Creatinine POC Glucose 137 H 129 H Lactate Dehydrogenase Laboratory Results - last 24 hr 02/09/20 02/09/20 02/09/20 07:00 08:10 16:05 POC Glucose 176 H 137 H 129 H
[2020-02-10] MEDS ORDERED: OXYTOCIN DRIP 30 UNITS/500 ML BAG IV SCH (05:45)
[2020-02-10] MEDS: OXYTOCIN 20 UNIT/1000ML DRIP 20 UNITS/1,000 ML BAG IV SCH ×2 (12:30→13:25)
--- NOTE | 2020-02-10 13:02 | Procedure Note ---
OB Delivery Note - Delivery Date of Delivery: 02/10/20 Surgeon: SHIRLENE LINDQUIST ([facility]) Estimated blood loss: 200cc - Vaginal Delivery presentation: vertex Delivery position: OA Intrapartum events: PROM->1hr before delivery, gestational hypertension, prolonged 2nd stage>2.5hr, mult. late decelerations Delivery induction: other (Misoprostol, Pitocin) Delivery monitor: external FHT, external uterine Route of delivery: Delivery placenta: spontaneous Delivery cord: 3 umbilical vessels Episiotomy: none Delivery laceration: 1st degree Anesthesia: local, epidural Delivery comments: Commenced pushing, infiltrated 3cc xylocaine 2% into perineum. Maternal effort progressed to of viable infant. Head delivered OA, restituted LOT. Cord clamped and cut and handed to peds team. Apgars 6/9. Placenta delivered spontaneously and intact, 3vc. 1st degree perineal laceration noted, hemostatic, not repaired. Counts correct x2. - A at 1 minute: 6 at 5 minutes: 9
[2020-02-10] MEDS ORDERED: LANOLIN/ZINC/DIMETHICONE (LANSINOH) 7 GM TP PRN (13:12)
[2020-02-10] MEDS ORDERED: diphenhydrAMINE 25 MG CAP PO PRN (13:12)
[2020-02-10] MEDS ORDERED: WITCH HAZEL/ GLYCERIN PAD TP PRN (13:12)
[2020-02-10] MEDS ORDERED: PROMETHAZINE 25 MG RECT SUPP PR PRN (13:12)
[2020-02-10] MEDS ORDERED: ONDANSETRON 4 MG/2 ML INJ IV PRN (13:12)
[2020-02-10] MEDS ORDERED: PROMETHAZINE 25 MG TAB PO PRN (13:12)
--- NOTE | 2020-02-10 16:12 | Post Anesthesia Evaluation ---
- Post Anesthesia Evaluation Patient Participated: Yes Airway Patent: Yes Stable Respiratory Function: Yes Nausea/Vomiting: No Temp > 96.8F: Yes Pain Manageable: Yes Adequeate Hydration: Yes Anesthesia Complications: No Block Receding Appropriately: Yes
[2020-02-10] MEDS: IBUPROFEN 600 MG TAB PO SCH ×3 (18:20→23:57)
[2020-02-10] MEDS: ACETAMINOPHEN 325 MG TAB PO PRN (20:37)
[2020-02-10] MEDS ORDERED: MAGNESIUM HYDROXIDE (MOM) ORAL LIQD UDC PO PRN (22:00)
[2020-02-10] MEDS: FERROUS SULFATE 325 MG TAB PO SCH (23:57)
[2020-02-11 02:19] LABS: Hematocrit 30.8 % (30.3-42.9); Hemoglobin 10.4 gm/dl (10.1-14.3)
[2020-02-11] MEDS: IBUPROFEN 600 MG TAB PO SCH ×3 (06:10→22:34)
[2020-02-11] MEDS: FERROUS SULFATE 325 MG TAB PO SCH ×2 (10:42→22:34)
[2020-02-11] MEDS: ACETAMINOPHEN 325 MG TAB PO PRN (10:50)
--- NOTE | 2020-02-11 12:39 | Progress Note ---
Assessment and Plan A/P PPD1 gest htn on antihypertensive routine PP care consdier d/c home tomorrow Subjective - Subjective Date of service: 02/11/20 Principal diagnosis: s/p Patient reports: appetite normal, voiding normally, pain well controlled, flatus, ambulating normally : doing well Objective - Vital Signs Latest vital signs: Vital Signs Temp Pulse Resp BP BP Pulse Ox 02/11/20 07:45 97.4 F L 73 12 121/83 99 02/11/20 00:03 97.8 F 75 20 125/74 98 02/10/20 17:09 98.1 F 76 18 127/81 98 02/10/20 16:17 84 98 02/10/20 16:12 78 99 02/10/20 16:07 81 98 02/10/20 16:06 81 139/77 02/10/20 16:02 89 98 02/10/20 15:57 83 99 02/10/20 15:52 80 98 02/10/20 15:51 92 H 130/72 02/10/20 15:47 77 99 02/10/20 15:42 77 98 02/10/20 15:37 86 99 02/10/20 15:36 77 142/77 02/10/20 15:32 79 98 02/10/20 15:27 76 99 02/10/20 15:22 76 99 02/10/20 15:21 74 144/76 02/10/20 15:17 75 100 02/10/20 15:12 85 99 02/10/20 15:07 81 99 02/10/20 15:06 81 135/75 02/10/20 15:02 76 100 02/10/20 14:57 81 100 02/10/20 14:52 87 99 02/10/20 14:51 81 139/80 02/10/20 14:47 95 H 99 02/10/20 14:42 76 100 02/10/20 14:37 83 99 02/10/20 14:36 75 141/81 02/10/20 14:32 80 98 02/10/20 14:27 79 97 02/10/20 14:22 79 98 02/10/20 14:21 73 147/81 02/10/20 14:17 76 97 02/10/20 14:12 77 99 02/10/20 14:07 85 98 02/10/20 14:06 88 152/90 02/10/20 14:02 76 99 02/10/20 13:57 77 98 02/10/20 13:52 76 99 02/10/20 13:51 86 157/84 02/10/20 13:47 80 99 02/10/20 13:42 75 99 02/10/20 13:37 77 99 02/10/20 13:36 79 150/84 02/10/20 13:32 79 100 02/10/20 13:27 99.1 F 84 100 02/10/20 13:22 78 100 02/10/20 13:21 77 161/99 02/10/20 13:17 82 99 02/10/20 13:12 80 98 02/10/20 13:07 75 100 02/10/20 13:02 78 98 02/10/20 12:57 76 97 02/10/20 12:52 75 170/77 99 02/10/20 12:47 77 99 02/10/20 12:42 79 99 Intake and Output 02/10/20 02/11/20 02/11/20 23:59 07:59 15:59 Intake Total 240 Output Total 600 800 Balance -360 -800 Intake: Oral 240 Output: Urine 600 800 Void 600 800 Other: Total, Intake Amount 240 Total, Output Amount 600 200 Voiding Method Toilet # Voids Void 1 1 - Exam Breasts: Present: normal Cardiovascular: Present: Regular rate, Normal S1 Lungs: Present: Clear to auscultation, Normal air movement Abdomen: Present: normal appearance, soft, normal bowel sounds. Absent: distention, tenderness, guarding Vulva: both: normal Uterus: Present: normal, firm, fundal height below umbilicus. Absent: bogginess, tenderness Extremities: Present: normal Deep Tendon Reflex Grade: Normal +2 Incision: Present: normal
[2020-02-12] MEDS: IBUPROFEN 600 MG TAB PO SCH ×2 (05:40→16:50)
--- NOTE | 2020-02-12 08:05 | Progress Note ---
Assessment and Plan A/P PPD2 gest htn routine PP care consdier d/c home today with f/u in 1 week Subjective - Subjective Date of service: 02/12/20 Principal diagnosis: s/p Patient reports: appetite normal, voiding normally, pain well controlled, flatus, ambulating normally : doing well Objective - Vital Signs Latest vital signs: Vital Signs Temp Pulse Resp BP BP 02/12/20 00:00 98.8 F 81 16 118/72 02/11/20 20:00 98.6 F 77 18 129/71 02/11/20 16:08 98.2 F 14 122/81 Intake and Output 02/11/20 02/12/20 02/12/20 23:59 07:59 15:59 Intake Total 500 300 Balance 500 300 Intake: Oral 200 Intake, Free Water 300 300 Other: Total, Intake Amount 200 Voiding Method Toilet # Voids 1 Void 1 - Exam Breasts: Present: normal Cardiovascular: Present: Regular rate, Normal S1 Lungs: Present: Clear to auscultation, Normal air movement Abdomen: Present: normal appearance, soft, normal bowel sounds. Absent: dist ention, tenderness, guarding Vulva: both: normal Uterus: Present: normal, firm, fundal height below umbilicus. Absent: bogginess, tenderness Extremities: Present: normal Incision: Present: normal
--- NOTE | 2020-02-12 08:07 | Discharge Summary ---
Providers - Providers Date of Admission: 02/08/20 12:26 Date of discharge: 02/12/20 Attending physician: KATE BHATIA 02/10/20 13:12 Consult to Card Lacer [CONS] Routine Reason For Exam: assistance with , SNS Primary care physician: [employer] Hospitalization Reason for admission: induction of labor Delivery: Episiotomy: none Laceration: none Other procedures: none complications: none Discharge diagnosis: IUP at term delivered Hospital course: IOL for gestational HTN and DM. f/u in 1 week for BP check Condition at discharge: Good Disposition: DC-01 TO HOME OR SELFCARE Plan - Discharge Medications Prescriptions: Ferrous Sulfate [Feosol 325 MG tab] 325 mg PO BID #60 tablet Ibuprofen [Motrin] 600 mg PO Q6H PRN #60 tablet PRN Reason: Pain - Provider Discharge Summary Activity: routine, no sex for 6 weeks Diet: routine Instructions: routine Additional instructions: [] Smoking cessation referral if applicable(refer to patient education folder for contact #) [] Refer to [facility]'s [facility] Booklet Call your doctor immediately for: * Fever > 100.5 * Heavy vaginal bleeding ( >1 pad per hour) * Severe persistent headache * Shortness of breath * Reddened, hot, painful area to leg or breast * Drainage or odor from incision. * Keep incision clean and dry at all times and follow doctor's instructions regarding bathing/showering - Follow up plan Follow up: PRIMARY CARE, [Primary Care Provider] - 7 Days
[2020-02-12] MEDS: FERROUS SULFATE 325 MG TAB PO SCH (09:59)
[2020-02-12 16:47] VITALS: BP 144/87
== END 2020-02-12 18:00 | disposition home or self-care (01) | DRG 807 ==
LOC: TRG 11:20 → UNDOADMIN 11:22 → LD 11:22 → OB 02-10 16:26
PROVIDERS: ADMIT Obstetrics & Gynecology; ATTEND Obstetrics & Gynecology
PROC: 10E0XZZ Delivery of Products of Conception, External Approach (ICD-10-PCS; principal; 2020-02-10)
PROC: 3E0R3BZ Introduction of Anesthetic Agent into Spinal Canal, Percutaneous Approach (ICD-10-PCS; 2020-02-10)
PROC: 00HU33Z Insertion of Infusion Device into Spinal Canal, Percutaneous Approach (ICD-10-PCS; 2020-02-10)
PROC: 3E033VJ Introduction of Other Hormone into Peripheral Vein, Percutaneous Approach (ICD-10-PCS; 2020-02-10)
DX: O24.429 Gestational diabetes mellitus in childbirth, unspecified control (principal); Z37.0 Single live birth; O13.4 Gestational [pregnancy-induced] hypertension without significant proteinuria, complicating childbirth; O99.62 Diseases of the digestive system complicating childbirth; O99.52 Diseases of the respiratory system complicating childbirth; O42.02 Full-term premature rupture of membranes, onset of labor within 24 hours of rupture; O76 Abnormality in fetal heart rate and rhythm complicating labor and delivery; O70.0 First degree perineal laceration during delivery; Z3A.37 37 weeks gestation of pregnancy
CPT/HCPCS: 36415; 81001; 82565; 82962; 83615; 84450; 84460; 84550; 85014; 85018; 85027; 86592; 86850; 86900; 86901; G0378; J0595; J2590; J3490; J7120; Q0169

== ENCOUNTER 2022-04-20 17:46 | Outpatient (CLI) | payer OTHER ==
[2022-04-20] MEDS ORDERED: LACTATED RINGERS 1,000 ML IV ONE (18:19)
[2022-04-20 19:03] VITALS: BP 108/70
[2022-04-20] MEDS ORDERED: ACETAMINOPHEN 500 MG TAB PO ONE (19:05)
[2022-04-20 20:03] LABS: Bacteria,Urine 1+ /HPF (Negative); Mucus,Urine FEW /HPF; WBC,Urine < 1.0 /HPF (0.0-6.0)
[2022-04-20 20:40] LABS: Bilirubin,Urine Negative (Negative); Blood,Urine Negative (Negative); Color,Urine Yellow (Yellow); PH,Urine 6.5 (5.0-7.0)
[2022-04-20 20:41] LABS: Protein,Urine <15 mg/dL mg/dL (Negative); Urobilinogen,Urine < 2.0 mg/dL (<2.0)
== END 2022-04-20 19:57 | disposition home or self-care (01) ==
LOC: TRG 17:46 → APU 17:47 → TRG 19:57
PROVIDERS: ATTEND Obstetrics & Gynecology
DX: O26.892 Other specified pregnancy related conditions, second trimester (principal); R25.2 Cramp and spasm; R42 Dizziness and giddiness; R51.9 Headache, unspecified; Z3A.27 27 weeks gestation of pregnancy
CPT/HCPCS: 59025; 81001; 96360; J7120